=== PATIENT | male | born 1945 | race Caucasian/White ===

== ENCOUNTER 2025-04-08 10:39 | Outpatient (CLI) | payer OTHER, SELFPAY | END 2025-04-08 11:00 | disposition home or self-care (01) | LOC: AMB 06-27 08:44 | PROVIDERS: Visit Provider Family Medicine | DX: N18.9 Chronic kidney disease, unspecified (principal); Z99.2 Dependence on renal dialysis | CPT/HCPCS: A0425; A0428 ==